=== PATIENT | male | born 1930 | race Caucasian/White ===

== ENCOUNTER 2017-11-29 15:40 | Observation (INO) ==
[2017-11-29] MEDS ORDERED: *HR* Promethazine 25 MG/ML VIAL IVP ONE (16:38)
--- NOTE | 2017-11-29 16:40 | Emergency Department Note ---
Disposition Clinical Impression: Fall Qualifiers: Encounter type: initial encounter Qualified Code(s): W19.XXXA - Unspecified fall, initial encounter Disposition: Still a Patient Referrals: Deangelo Hung Jr, MD [Primary Care Provider] - Forms: ED Satisfaction Letter Fall HPI - General Chief Complaint: ED Fall Stated Complaint: multiple falls Time Seen by Provider: 11/29/17 16:14 Source: patient, family Nursing Notes Reviewed: Yes Vital Signs Reviewed: Yes - History of Present Illness HPI Narrative: Mr. Lowery is an 87 year-old gentleman presenting from PCP's office with his daughter for weakness and falls at home. He lives at home with his , his is not at bedside. Pt fell twice on Tuesday while in bathroom working on a heater when he fell, injuring his forehead and left arm. He doesn't know if he lost consciousness. Daughter states he seemed somewhat confused recently and has difficulty keeping his balance when walking. Pt is on coumadin for anticoagulation for his h/o atrial fibrillation. Per daughter, pt's only heart history is atrial fibrillation, no h/o MS in the past. Pt has had decreased appetite, chills, and cough with white-wise sputum over last couple days; he doesn't report fever but daughter states he was very hot to the touch yesterday. He denies chest pain, palpitations, heart racing, shortness of breath, abdominal pain, dysuria, hematuria, diarrhea. - Related Data Home Medications Medication Instructions Recorded Confirmed Albuterol Sulfate [Proair 90 mcg IH DAILY PRN 05/21/15 11/29/17 Respiclick] Vitamin E (Dl,Tocopheryl Acet) 400 unit PO DAILY 05/21/15 11/29/17 [Vitamin E] Albuterol Neb [Proventil Neb] 2.5 mg IH Q4HR 06/15/17 11/29/17 Diltiazem HCl [Diltiazem ER] 120 mg PO DAILY 06/15/17 11/29/17 Finasteride [Proscar] 5 mg PO DAILY 06/15/17 11/29/17 LORazepam [Ativan] 0.5 mg PO QAM 06/15/17 11/29/17 LORazepam [Ativan] 2 tab PO HS 06/15/17 11/29/17 Amitriptyline [Elavil] 50 mg PO HS 11/29/17 11/29/17 Budesonide/Formoterol 160/4.5 2 puff IH BIDR 11/29/17 11/29/17 [Symbicort 160/4.5] Calcium Carb, Citrate/Vit D3 1 tab PO DAILY 11/29/17 11/29/17 [Calcium + D3 ER Tablet] Mirabegron [Myrbetriq] 50 mg PO DAILY 11/29/17 11/29/17 Tamsulosin HCl [Flomax] 0.8 mg PO DAILY 11/29/17 11/29/17 Warfarin [Coumadin] 5 mg PO DAILY 11/29/17 11/29/17 Previous Rx's Medication Instructions Recorded Aspirin 81 mg PO DAILY 30 Days tablet 05/23/15 Allergies Allergy/AdvReac Type Severity Reaction Status Date / Time No Known Allergies Allergy Verified 11/29/17 15:47 All systems ED: reviewed and negative except as stated. Review of Systems: As Per HPI Constitutional: Reports: as per HPI Cardiovascular: Reports: as per HPI. Denies: chest pain, palpitations, edema Respiratory: Reports: as per HPI, cough Gastrointestinal: Reports: as per HPI. Denies: abdominal pain, diarrhea Neurological: Reports: as per HPI. Denies: numbness, paresthesias Hematological/Lymphatic: Reports: as per HPI, easy bleeding, easy bruising Fall PMH - Past Medical History Medical history: Reports: arthritis, asthma, atrial fibrillation, cancer, COPD Surgical history: Reports: cholecystectomy Psychiatric history: Reports: anxiety - Social History Smoking Status: Former smoker Alcohol use: Reports: none Drug use: Reports: none Physical Exam - General Limitations: physical limitation, other (hard of hearing) General appearance: alert, in no apparent distress - Head Head exam: normocephalic, other (Right-sided forehead abrasion) - Eye Eye exam: Present: normal appearance, PERRL - Neck Neck exam: Present: full ROM. Absent: tenderness - Chest Chest inspection: Present: symmetric chest wall rise - Respiratory Respiratory exam: Present: wheezes (expiratory), other (rhonchi). Absent: respiratory distress, accessory muscle use - Cardiovascular Cardiovascular exam: Present: regular rate, tachycardia, normal heart sounds, + S1, +S2 - Abdominal Exam Abdominal exam: Present: soft. Absent: Non-Tender, distention, guarding, rebound, rigidity - Extremities Exam Extremities exam: Present: normal capillary refill. Absent: pedal edema - Expanded Upper Extremity Exam Forearm/Wrist exam: Present: ecchymosis (Bilateral), erythema (Left), other ( demonstrates good range of motion, strength). Absent: deformity - Back Exam Back exam: Present: normal inspection - Neurological Exam Neurological exam: Present: alert, oriented X3, other (answers questions appropriately, no facial droop, no speech deficit). Absent: motor sensory deficit - Psychiatric Psychiatric exam: Present: normal affect, normal mood Course Vital Signs Temperature 97.9 F 11/29/17 15:43 Pulse Rate 111 11/29/17 15:43 Respiratory Rate 18 11/29/17 15:43 Blood Pressure 127/78 11/29/17 15:43 O2 Sat by Pulse Oximetry 97 11/29/17 15:43 Temperature 97.9 F 11/29/17 16:21 Pulse Rate 92 11/29/17 18:21 Respiratory Rate 10 11/29/17 16:38 Blood Pressure 120/85 11/29/17 18:21 O2 Sat by Pulse Oximetry 96 11/29/17 18:21 Oxygen Delivery Oxygen Delivery Room Air Fall - MDM Narrative Medical decision making narrative: 87 year-old presents for falls at home. Pt has h/o COPD. On presentation, he is afebrile and tachycardic at 111, saturating 97% on room air, and in NAD. EKG shows atrial fibrillation and no evidence for acute ischemia. CT head shows no intracranial hemorrhage and CT cervical spine shows no evidence of fracture, compression, or subluxation. CXR shows opacity at base of left lung, suspicious for PNA. Initial labs show WBC 18.4, INR 2.5, and hyperkalemia 5.5. Lactic acid within normal limits. Preliminary ultrasound report for venous doppler of LUE is negative for DVT/SVT. While in the ED, he has been slightly tachycardic in low 100's, he is hemodynamically stable, oxygen saturation 96% on room air.. DuoNeb treatment, Solu-Medrol, and Levaquin given in ED. Pt to be admitted for PNA treatment and for further evaluation. - Medical Records Medical records reviewed: Yes I reviewed the patient's medical records. - Lab Data Lab results reviewed: Yes I reviewed the patient's lab results. Result diagrams: 11/29/17 16:47 11/29/17 16:47 Lab Results 11/29/17 11/29/17 11/29/17 Range/Units 16:47 16:47 16:47 WBC 18.4 H (4.3-11.1) K/mcL RBC 4.74 (4.19-5.50) M/mcL Hgb 15.0 (12.9-16.9) g/dL Hct 44.2 (37.5-50.1) % MCV 93.2 (83.0-100.0) fL MCH 31.6 (28.0-33.3) pg MCHC 33.9 (31.6-35.5) g/dL RDW 15.2 H (11.5-14.5) % Plt Count 137 L (140-400) K/mcL MPV 10.3 (9.4-12.4) fL Immature Gran % 0.4 (0-4) % Seg Neutrophils % 84.8 % Lymphocytes % 9.4 % Monocytes % 4.8 % Eosinophils % 0.3 % Basophils % 0.3 % Neutrophils # 15.6 H (1.6-8.9) K/mcL Lymphocytes # 1.7 (0.6-4.6) K/mcL Monocytes # 0.9 (0.0-1.3) K/mcL Eosinophils # 0.1 (0.0-0.6) K/mcL Basophils # 0.1 (0.0-0.2) K/mcL PT 27.9 H (9.4-12.1) Seconds INR 2.5 APTT 39.6 H (26.0-36.0) Seconds Sodium 134 L (136-145) mEq/L Potassium 5.5 H (3.5-5.1) mEq/L Chloride 103 (98-107) mEq/L Carbon Dioxide 23 (23-29) mEq/L BUN 26 H (8-23) mg/dL Creatinine 1.15 (0.70-1.30) mg/dL Est GFR ( Amer) > 60 (> 60) Est GFR (Non-Af Amer) > 60 (> 60) BUN/Creatinine Ratio 23 (6-26) Glucose 108 H (70-105) mg/dL Calculated Osmolality 283 (280-300) Lactic Acid (0.5-2.2) mmol/L Calcium 9.7 (8.6-10.3) mg/dL Total Bilirubin 1.7 H (0.3-1.0) mg/dL AST 19 (13-39) Units/L ALT 13 (7-52) Units/L Alkaline Phosphatase 47 (34-104) Units/L Serum Total Protein 7.2 (6.4-8.9) g/dL Albumin 4.0 (3.5-5.7) g/dL Globulin 3.2 (2.4-3.5) g/dL Albumin/Globulin Ratio 1.3 (1.1-2.2) Blood Type Antibody Screen 11/29/17 11/29/17 Range/Units 16:47 16:47 WBC (4.3-11.1) K/mcL RBC (4.19-5.50) M/mcL Hgb (12.9-16.9) g/dL Hct (37.5-50.1) % MCV (83.0-100.0) fL MCH (28.0-33.3) pg MCHC (31.6-35.5) g/dL RDW (11.5-14.5) % Plt Count (140-400) K/mcL MPV (9.4-12.4) fL Immature Gran % (0-4) % Seg Neutrophils % % Lymphocytes % % Monocytes % % Eosinophils % % Basophils % % Neutrophils # (1.6-8.9) K/mcL Lymphocytes # (0.6-4.6) K/mcL Monocytes # (0.0-1.3) K/mcL Eosinophils # (0.0-0.6) K/mcL Basophils # (0.0-0.2) K/mcL PT (9.4-12.1) Seconds INR APTT (26.0-36.0) Seconds Sodium (136-145) mEq/L Potassium (3.5-5.1) mEq/L Chloride (98-107) mEq/L Carbon Dioxide (23-29) mEq/L BUN (8-23) mg/dL Creatinine (0.70-1.30) mg/dL Est GFR ( Amer) (> 60) Est GFR (Non-Af Amer) (> 60) BUN/Creatinine Ratio (6-26) Glucose (70-105) mg/dL Calculated Osmolality (280-300) Lactic Acid 1.4 (0.5-2.2) mmol/L Calcium (8.6-10.3) mg/dL Total Bilirubin (0.3-1.0) mg/dL AST (13-39) Units/L ALT (7-52) Units/L Alkaline Phosphatase (34-104) Units/L Serum Total Protein (6.4-8.9) g/dL Albumin (3.5-5.7) g/dL Globulin (2.4-3.5) g/dL Albumin/Globulin Ratio (1.1-2.2) Blood Type O POSITIVE Antibody Screen NEGATIVE - Radiology Data Radiology results reviewed: Yes I reviewed the patient's radiology results. - EKG Data EKG attestation: Yes I reviewed and interpreted this EKG. Rate: tachycardia Rhythm: A.Fib
--- NOTE | 2017-11-29 16:47 | Emergency Department Note ---
Disposition Clinical Impression: Fall Qualifiers: Encounter type: initial encounter Qualified Code(s): W19.XXXA - Unspecified fall, initial encounter Disposition: Still a Patient Forms: ED Satisfaction Letter General Adult HPI - General Chief complaint: ED Fall Stated complaint: multiple falls Time Seen by Provider: 11/29/17 16:14 Source: patient, family Limitations: physical limitation - History of Present Illness Pain Scale: 8 - Related Data Home Medications Medication Instructions Recorded Confirmed Albuterol Sulfate [Proair 90 mcg IH DAILY PRN 05/21/15 06/15/17 Respiclick] Amitriptyline [Elavil] 50 mg PO HS 05/21/15 06/15/17 Budesonide/Formoterol 160/4.5 2 puff IH BID 05/21/15 06/15/17 [Symbicort] Calcium Carbonate/Vitamin D3 1 tab PO DAILY 05/21/15 06/15/17 [Calcium 500-Vit D3 400 Tablet] Tamsulosin [Flomax] 0.4 mg PO DAILY 05/21/15 06/15/17 Vitamin E (Dl,Tocopheryl Acet) 400 unit PO DAILY 05/21/15 06/15/17 [Vitamin E] Albuterol Neb [Proventil Neb] 2.5 mg IH Q4HR 06/15/17 06/15/17 Diltiazem HCl [Diltiazem ER] 120 mg PO DAILY 06/15/17 06/15/17 Finasteride [Proscar] 5 mg PO DAILY 06/15/17 06/15/17 LORazepam [Ativan] 0.5 mg PO QAM 06/15/17 06/15/17 LORazepam [Ativan] 2 tab PO HS 06/15/17 06/15/17 Previous Rx's Medication Instructions Recorded Aspirin 81 mg PO DAILY 30 Days tablet 05/23/15 Warfarin [Coumadin] 5 mg PO 1800 #7 tablet 05/23/15 HYDROcodone/Acet 5/325 mg [[place] 1 tab PO Q6H PRN #12 tab 06/15/17 5-325 mg] Allergies Allergy/AdvReac Type Severity Reaction Status Date / Time No Known Allergies Allergy Verified 11/29/17 15:47 Past Medical History - Past Medical History Medical history: Reports: arthritis, asthma, atrial fibrillation, cancer, COPD Surgical history: Reports: cholecystectomy Psychiatric history: Reports: anxiety - Social History Smoking Status: Former smoker Smokeless Tobacco Status: No Alcohol use: Reports: none Drug use: Reports: none Physical Exam - General Limitations: physical limitation General appearance: alert, in no apparent distress Course Vital Signs Temperature 97.9 F 11/29/17 15:43 Pulse Rate 111 11/29/17 15:43 Respiratory Rate 18 11/29/17 15:43 Blood Pressure 127/78 11/29/17 15:43 O2 Sat by Pulse Oximetry 97 11/29/17 15:43 Temperature 97.9 F 11/29/17 16:21 Pulse Rate 105 11/29/17 16:38 Respiratory Rate 10 11/29/17 16:38 Blood Pressure 137/88 11/29/17 16:38 O2 Sat by Pulse Oximetry 96 11/29/17 16:38 Oxygen Delivery Oxygen Delivery Room Air Attestation Statement - Attestation Attestation: I examined this patient and my medical decision-making was reviewed with the Resident Physician. I agree with the documented findings, disposition and treatment plan as described except to the extent set forth below. 87 year old male presents to the ED with complaints of 2 falls on Tuesday wihtout syncope and states that he was in the bathroom trying to hooks up the heater and than fell forward and injured his head on the forehead and is currently on coumadin and fell on the left side of his arm. [employer] Super[employer] Maintenance at bedside states that he has fallen again while trying to get into bed as well. NO LOC. Greg denies headache or nekc pain but has extensive bruising to the LUE with good radial pulse and no paresthesias or neuro symptoms. Kristina daughter states that she is concnerd abou the multiple falls and being on coumsin and has a history of atrial fibrillation. Greg denies chest pain, cough, nausea, vomitting, abdominal pain or weakness. We will do a trauma evaluation and syncopae evlauation and a possible infectious source to the falls.
[2017-11-29 17:13] LABS: INR 2.5; Prothrombin Time 27.9 Seconds (9.4-12.1)
[2017-11-29 17:16] LABS: Activated Partial Thrombo Time 39.6 Seconds (26.0-36.0)
[2017-11-29 17:25] LABS: Alanine Aminotransferase 13 Units/L (7-52); Albumin/Globulin Ratio 1.3 (1.1-2.2); Alkaline Phosphatase 47 Units/L (34-104); Aspartate Amino Transferase 19 Units/L (13-39); BUN/Creatinine Ratio 23 (6-26); Bilirubin,Total 1.7 mg/dL (0.3-1.0); Blood Urea Nitrogen 26 mg/dL (8-23); Calcium 9.7 mg/dL (8.6-10.3); Carbon Dioxide 23 mEq/L (23-29); Chloride 103 mEq/L (98-107); Globulin 3.2 g/dL (2.4-3.5); Glucose 108 mg/dL (70-105); Osmolality,Calculated 283 (280-300); Potassium 5.5 mEq/L (3.5-5.1); Sodium 134 mEq/L (136-145); Total Protein 7.2 g/dL (6.4-8.9); eGFR For African Americans > 60 (> 60); eGFR For Non-African Americans > 60 (> 60)
[2017-11-29] MEDS ORDERED: Levofloxacin 750 MG/150 ML 750 MG/150 ML BAG IVPB ONE (17:38)
[2017-11-29] MEDS ORDERED: methylPREDNISolone 125 MG/2 ML VIAL IVP ONE (17:38)
[2017-11-29] MEDS ORDERED: Ipratropium/Albuterol Neb 3 ML IH ONE (17:38)
[2017-11-29 18:03] LABS: Basophils # 0.1 K/mcL (0.0-0.2); Basophils % 0.3 %; Eosinophils # 0.1 K/mcL (0.0-0.6); Eosinophils % 0.3 %; Hematocrit 44.2 % (37.5-50.1); Immature Granulocytes % 0.4 % (0-4); Lymphocytes # 1.7 K/mcL (0.6-4.6); Lymphocytes % 9.4 %; Mean Corpuscular Hemoglobin 31.6 pg (28.0-33.3); Mean Platelet Volume 10.3 fL (9.4-12.4); Monocytes # 0.9 K/mcL (0.0-1.3); Monocytes % 4.8 %; Neutrophils # 15.6 K/mcL (1.6-8.9); Platelet Count 137 K/mcL (140-400); Red Blood Count 4.74 M/mcL (4.19-5.50); Red Cell Distribution Width 15.2 % (11.5-14.5); Segmented Neutrophils % 84.8 %
[2017-11-29 18:04] LABS: Mean Corpuscular HGB Conc 33.9 g/dL (31.6-35.5); Mean Corpuscular Volume 93.2 fL (83.0-100.0)
[2017-11-29 19:42] LABS: Bilirubin,Urine Negative (Negative); Blood,Urine Negative (Negative); Clarity,Urine Cloudy (Clear); Color,Urine Dark Yellow (Yellow); Glucose,Urine (UA) Normal (Normal); Ketones,Urine Trace mg/dL (Negative); Leukocyte Esterase,Urine Small (Negative); Nitrite,Urine Negative (Negative); PH,Urine 5.5 pH Units (5.0-8.0); Protein,Urine Trace mg/dL (Neg-Trace); Specific Gravity,Urine > 1.030 (1.010-1.025); Urobilinogen,Urine Normal (Normal)
[2017-11-29 19:45] LABS: Bacteria,Urine None Seen per hpf (None-Few); Hyaline Casts,Urine Moderate per lpf (None-Few); Squamous Epithelial Cell,Urine Many per lpf (None-Few)
[2017-11-29 20:02] LABS: Waxy Casts,Urine Few per lpf (None Seen)
[2017-11-29] MEDS ORDERED: (Albuterol Sulfate [Proair Respiclick] 90 MCG) IH PRN (20:37)
[2017-11-29] MEDS ORDERED: Naloxone 0.4 MG/ML INJ IVP PRN (20:38)
--- NOTE | 2017-11-29 20:44 | Internal Med History&Physical ---
Date of Encounter: 11/29/17 Time of Encounter: 20:42 Internal Medicine - H&P: HPI Chief complaint: fall at home History of present illness: Mr. Lowery is a 87 year old male who presents with a fall at home, found to have a possible pneumonia. Patient has a history of atrial fibrillation on Coumadin, rate controlled who presents with a fall and back from today while attempting to walk the heater on while bending over. Denies any dizziness or any prodromal symptoms. It appears to be a mechanical fall. He sustained trauma to the right forehead, left arm, right wrist. However further review patient is reported wheezing, productive of yellow sputum, having a fever, feeling cold the last week approximately. He has quit smoking in 1930s. EKG personally reviewed with rate of 100, atrial fibrillation CT/CT head/brain wo con IMPRESSION: 1. No intracranial hemorrhage or extra-axial fluid collection. 2. Moderate degenerative change of the cervical spine without evidence of fracture, compression deformity or subluxation. 3. Chronic microvascular ischemia involving the brain. 4. Old trauma to the left medial orbital wall suspected. XR/XR chest 1V portable IMPRESSION: Mild patchy opacity in left lung base, atelectasis versus pneumonia. CT/CT cervical spine wo con IMPRESSION: 1. No intracranial hemorrhage or extra-axial fluid collection. 2. Moderate degenerative change of the cervical spine without evidence of fracture, compression deformity or subluxation. 3. Chronic microvascular ischemia involving the brain. 4. Old trauma to the left medial orbital wall suspected. Past Med Surg Social Fam HX - Past Medical History Medical history: arthritis, asthma, atrial fibrillation, cancer, COPD Psychiatric history: anxiety - Past Surgical History Surgical History: cholecystectomy - Social History Smoking Status: Former smoker Smokeless Tobacco Status: No Alcohol use: none Drug use: none - Family History Mother Living Status: Hx Family Cardiac Disorders: Yes Hx Family Cancer: Yes Internal Medicine - H&P: Meds Albuterol Sulfate [Proair Respiclick] 90 mcg IH DAILY PRN 05/21/15 [History] Vitamin E (Dl,Tocopheryl Acet) [Vitamin E] 400 unit PO DAILY 05/21/15 [History] Aspirin 81 mg PO DAILY 30 Days tablet 05/23/15 [Rx] Albuterol Neb [Proventil Neb] 2.5 mg IH Q4HR 06/15/17 [History] Diltiazem HCl [Diltiazem ER] 120 mg PO DAILY 06/15/17 [History] Finasteride [Proscar] 5 mg PO DAILY 06/15/17 [History] LORazepam [Ativan] 0.5 mg PO QAM 06/15/17 [History] LORazepam [Ativan] 2 tab PO HS 06/15/17 [History] Amitriptyline [Elavil] 50 mg PO HS 11/29/17 [History] Budesonide/Formoterol 160/4.5 [Symbicort 160/4.5] 2 puff IH BIDR 11/29/17 [ History] Calcium Carb, Citrate/Vit D3 [Calcium + D3 ER Tablet] 1 tab PO DAILY 11/29/17 [ History] Mirabegron [Myrbetriq] 50 mg PO DAILY 11/29/17 [History] Tamsulosin HCl [Flomax] 0.8 mg PO DAILY 11/29/17 [History] Warfarin [Coumadin] 5 mg PO DAILY 11/29/17 [History] 3 Allergy/AdvReac Type Severity Reaction Status Date / Time No Known Allergies Allergy Verified 11/29/17 15:47 All Systems PM: A 10-system review of systems was performed and is negative for pertinent findings except as documented above in the HPI. Review of systems: ROS 14 point review of systems reviewed as best as possible given presentation. Pertinent positive or negative as per HPI or otherwise reviewed as negative - Constitutional Vitals: Temp Pulse Resp BP Pulse Ox 97.9 F 92 20 120/83 96 11/29/17 16:21 11/29/17 18:21 11/29/17 19:54 11/29/17 19:54 11/29/17 18:21 Exam: General - AAO x 3 Psych - Appropriate affect/speech. No agitation Eyes - JERMAINE. Eye lids intact. No scleral icterus Neuro - No gross peripheral or central neuro deficits on inspection Heart - Sinus. RRR. S1 and S2 present. No added HS/murmurs appreciated. No elevated JVD appreciated. Lung - Adequate air entry b/l, bibasal crackles. No wheeze appreciated GI - Soft, non-tender. No hepatosplenomegaly/ascites. BS+ - No CVA/suprapubic tenderness or palpable bladder distension Skin -superficial laceration of the right forehead, erythema due to trauma of the left upper extremity. Internal Med - H&P Results - Labs CBC & Chem 7: 11/29/17 16:47 11/29/17 16:47 Labs: Urine 11/29/17 Range/Units 19:31 Urine Color Dark Yellow (Yellow) Urine Clarity Cloudy A (Clear) Urine pH 5.5 (5.0-8.0) pH Units Ur Specific [place] > 1.030 H (1.010-1.025) Urine Protein Trace (Neg-Trace) mg/dL Urine Glucose (UA) Normal (Normal) mg/dL - Assessment and plan (1) PNA (pneumonia) Current Visit: Yes Status: Acute Assessment and plan: Sent serologies, empiric IV Levaquin,, pulse ox monitoring, aggressive incentive spirometry Qualifiers: Pneumonia type: due to unspecified organism Laterality: left Lung location: lower lobe of lung Qualified Code(s): J18.1 - Lobar pneumonia, unspecified organism (2) Fall Current Visit: Yes Status: Acute Assessment and plan: Appears to be mechanical. Possible in the setting of pneumonia. PTOT evaluation Qualifiers: Encounter type: initial encounter Qualified Code(s): W19.XXXA - Unspecified fall, initial encounter (3) Atrial fibrillation with RVR Current Visit: No Status: Acute Assessment and plan: Continue Cardizem, hold Coumadin on Levaquin, trend INR We would monitor A. fib closely. If uncontrolled may have to start IV vanessa alpa (4) COPD (chronic obstructive pulmonary disease) Current Visit: No Status: Chronic Assessment and plan: Appears compensated, continue nebs Qualifiers: COPD type: unspecified COPD Qualified Code(s): J44.9 - Chronic obstructive pulmonary disease, unspecified - Time Spent With Patient Total time spent is greater than 50% in coordination of care (as documented) at patient's floor/unit and/or counseling patient:
[2017-11-29] MEDS ORDERED: *HR* Metoprolol 5 MG/5 ML VIAL IVP PRN (20:50)
[2017-11-29] MEDS ORDERED: Calcium Chloride 1,000 MG in 0.9 % Sodium Chloride 100 ML IVPB ONE (20:55)
[2017-11-29] MEDS ORDERED: Albuterol 2.5 MG/3 ML NEBULIZER IH SCH (21:00)
[2017-11-29] MEDS: 0.9 % Sodium Chloride 1,000 ML IVC SCH (22:47)
[2017-11-29] MEDS: *HR* LORazepam 1 MG TABLET PO SCH (22:48)
[2017-11-29] MEDS: Albuterol 2.5 MG/3 ML NEBULIZER IH SCH (22:58)
[2017-11-29] MEDS: Budesonide/Formoterol 160/4.5 MDI IH SCH (22:58)
[2017-11-30] MEDS: Albuterol 2.5 MG/3 ML NEBULIZER IH SCH ×4 (04:16→21:46)
[2017-11-30 04:51] LABS: Basophils % 0.1 %
[2017-11-30 04:58] LABS: INR 2.7; Prothrombin Time 29.3 Seconds (9.4-12.1)
[2017-11-30 05:13] LABS: Alanine Aminotransferase 13 Units/L (7-52); Albumin 3.7 g/dL (3.5-5.7); Albumin/Globulin Ratio 1.1 (1.1-2.2); Alkaline Phosphatase 47 Units/L (34-104); Aspartate Amino Transferase 16 Units/L (13-39); BUN/Creatinine Ratio 27 (6-26); Bilirubin,Total 1.2 mg/dL (0.3-1.0); Blood Urea Nitrogen 29 mg/dL (8-23); Calcium 9.6 mg/dL (8.6-10.3); Carbon Dioxide 22 mEq/L (23-29); Chloride 103 mEq/L (98-107); Globulin 3.3 g/dL (2.4-3.5); Glucose 184 mg/dL (70-105); Osmolality,Calculated 295 (280-300); Potassium 3.9 mEq/L (3.5-5.1); Sodium 137 mEq/L (136-145); eGFR For African Americans > 60 (> 60); eGFR For Non-African Americans > 60 (> 60)
[2017-11-30 06:43] LABS: Hematocrit 47.7 % (37.5-50.1); Immature Granulocytes % 0.6 % (0-4); Lymphocytes # 0.6 K/mcL (0.6-4.6); Lymphocytes % 5.4 %; Mean Corpuscular Hemoglobin 31.3 pg (28.0-33.3); Mean Corpuscular Volume 92.1 fL (83.0-100.0); Mean Platelet Volume 10.3 fL (9.4-12.4); Monocytes # 0.2 K/mcL (0.0-1.3); Monocytes % 1.9 %; Platelet Count 133 K/mcL (140-400); Red Blood Count 5.18 M/mcL (4.19-5.50); Red Cell Distribution Width 14.9 % (11.5-14.5)
[2017-11-30 06:48] LABS: Neutrophils # 9.9 K/mcL (1.6-8.9)
[2017-11-30 06:49] LABS: Hemoglobin 16.2 g/dL (12.9-16.9)
[2017-11-30] MEDS: *HR* LORazepam 0.5 MG TABLET PO SCH (08:57)
[2017-11-30] MEDS: Aspirin 81 MG TAB.CHEW PO SCH (08:57)
[2017-11-30] MEDS: Finasteride 5 MG TABLET PO SCH (08:57)
[2017-11-30] MEDS: Diltiazem CD (24hr) 120 MG CAPSULE PO SCH (08:58)
[2017-11-30] MEDS: (Mirabegron [Myrbetriq] 50 MG) PO SCH (10:04)
[2017-11-30] MEDS: Budesonide/Formoterol 160/4.5 MDI IH SCH ×2 (10:20→21:46)
[2017-11-30 11:15] LABS: Creatine Kinase 73 Units/L (30-223)
[2017-11-30] MEDS: 0.9 % Sodium Chloride 1,000 ML IVC SCH (11:48)
--- NOTE | 2017-11-30 13:58 | Internal Med Progress Note ---
Date of Encounter: 11/30/17 Time of Encounter: 14:04 - Assessment and plan (1) Fall Current Visit: Yes Status: Acute Assessment and plan: fell while while bending over on day of arrivals. Head CT non-acute. C-spine non -acute. Bi;ateral carotid dopplers unremarkable. Fall appears to be mechanical. PT/OT consulted Qualifiers: Encounter type: initial encounter Qualified Code(s): W19.XXXA - Unspecified fall, initial encounter (2) PNA (pneumonia) Current Visit: Yes Status: Acute Assessment and plan: CXR concerning for PNA. Urinary antigens negative, afebrile, no elevated to WBC. Continue IV Levaquin. Qualifiers: Pneumonia type: due to unspecified organism Laterality: left Lung location: lower lobe of lung Qualified Code(s): J18.1 - Lobar pneumonia, unspecified organism (3) Elevated lactic acid level Current Visit: Yes Status: Acute Assessment and plan: lactic acid peaked at 3.8. WBC elevated at 18K. could possibly be related to pneumonia however does not appear toxic or acute. Suspect more likely reactive. Continue IV fluids. Monitor repeat lactic acid. (4) Atrial fibrillation with RVR Current Visit: No Status: Acute Assessment and plan: per hx. Rate controlled. Cont home CCB, coumadin (5) COPD (chronic obstructive pulmonary disease) Current Visit: No Status: Chronic Assessment and plan: has known COPD. No evidence of exacerbation. Treating pneumonia as noted above. Continue home inhalers Qualifiers: COPD type: unspecified COPD Qualified Code(s): J44.9 - Chronic obstructive pulmonary disease, unspecified (6) DVT prophylaxis Current Visit: Yes Status: Acute Assessment and plan: SCD - Time Spent With Patient Total time spent is greater than 50% in coordination of care (as documented) at patient's floor/unit and/or counseling patient: - Subjective Interval history: Seen and examined at bedside. Patient is new to me, information obtained from chart review patient report. Patient sitting up on edge of bed, says he feels back to baseline would like to discharge home today. No chest pain or shortness of breath. He does have some tenderness to left arm otherwise has no complaints. - Constitutional Vitals: Temp Pulse Resp BP Pulse Ox 97.7 F 96 14 120/74 95 11/30/17 11:27 11/30/17 11:27 11/30/17 11:27 11/30/17 11:27 11/30/17 11:27 General appearance: Present: A&O X 3, morbidly obese - Head Head exam: Present: atraumatic, normocephalic - Eye Eye exam: Present: PERRL, conjuntiva pink, sclera anicteric Pupils: Present: PERRL - Neck Neck exam general surgery: Present: supple, trachea midline. Absent: lymphadenopathy - Respiratory Respiratory exam: Present: rhonchi (RLL ). Absent: accessory muscle use, rales , wheezes - Cardiovascular Cardiovascular exam: Present: RRR, +S1, +S2. Absent: diastolic murmur, gallop, rubs, systolic murmur - GI/Abdominal GI/Abdominal exam: Present: normal bowel sounds, soft, no peritoneal signs. Absent: distended, tenderness - Extremities Exam Extremities exam: Present: warm, radial pulses palpable and symmetrical. Absent : calf tenderness, cyanotic, pedal edema - Neurological Exam Neurological exam: Present: CN II-XII intact, oriented X3, no focal deficits. Absent: pronater drift, facial droop, speech deficit - Skin Skin exam: Present: dry, intact Internal Medicine: Result - Labs CBC & Chem 7: 11/30/17 04:37 11/30/17 04:37 Labs: Short CBC 11/30/17 Range/Units 04:37 WBC 10.8 (4.3-11.1) K/mcL Hgb 16.2 (12.9-16.9) g/dL Hct 47.7 (37.5-50.1) % Plt Count 133 L (140-400) K/mcL Neutrophils # 9.9 H (1.6-8.9) K/mcL BMP 11/30/17 04:37 Sodium 137 Potassium 3.9 D Chloride 103 Carbon Dioxide 22 L BUN 29 H Creatinine 1.07 Glucose 184 H Calcium 9.6 Liver Function 11/30/17 Range/Units 04:37 Total Bilirubin 1.2 H (0.3-1.0) mg/dL AST 16 (13-39) Units/L ALT 13 (7-52) Units/L Alkaline Phosphatase 47 (34-104) Units/L Albumin 3.7 (3.5-5.7) g/dL - ABG Interpretation ABG results: PT/INR, D-dimer PT 29.3 Seconds (9.4-12.1) H 11/30/17 04:37 Consult Discharge Plan - Plan Referrals: Deangelo Hung Jr, MD [Primary Care Provider] -
--- NOTE | 2017-11-30 14:47 | Electrocardiograph Report ---
[address] [place], [place] [address] Test Date: 2017-11-29 Pat Name: Lawrence Lowery Department: 103 Room: 3B24 Gender: M Indexer: MSC : 1930 Requested By: Juan Carlos Harding Order Number: [id number] Reading MD: Halina Chavez Measurements Intervals [place] Rate: 100 P: LA: 0 QRS: -15 QRSD: 92 T: 67 QT: 328 QTc: 385 Interpretive Statements ATRIAL FIBRILLATION WITH RAPID VENTRICULAR RESPONSE ABNORMAL RHYTHM ECG Electronically Signed On 11-30-2017 14:45:56 EDT by Halina Chavez
[2017-11-30] MEDS ORDERED: *HR* Warfarin 5 MG TABLET PO ONE (18:00)
[2017-11-30] MEDS ORDERED: Levofloxacin 500 MG/100 ML 500 MG/100 ML BAG IVPB SCH (18:00)
[2017-11-30] MEDS ORDERED: Warfarin perPT PO PRN (18:00)
[2017-11-30] MEDS: *HR* LORazepam 1 MG TABLET PO SCH (21:38)
[2017-12-01] MEDS: Albuterol 2.5 MG/3 ML NEBULIZER IH SCH ×4 (04:20→21:31)
[2017-12-01 04:53] LABS: INR 3.2; Prothrombin Time 35.3 Seconds (9.4-12.1)
[2017-12-01 05:08] LABS: Alanine Aminotransferase 13 Units/L (7-52); Albumin 3.3 g/dL (3.5-5.7); Albumin/Globulin Ratio 1.2 (1.1-2.2); Alkaline Phosphatase 46 Units/L (34-104); Aspartate Amino Transferase 17 Units/L (13-39); BUN/Creatinine Ratio 36 (6-26); Bilirubin,Total 0.6 mg/dL (0.3-1.0); Blood Urea Nitrogen 33 mg/dL (8-23); Calcium 8.8 mg/dL (8.6-10.3); Carbon Dioxide 25 mEq/L (23-29); Chloride 108 mEq/L (98-107); Globulin 2.7 g/dL (2.4-3.5); Glucose 108 mg/dL (70-105); Osmolality,Calculated 298 (280-300); Potassium 3.9 mEq/L (3.5-5.1); Sodium 140 mEq/L (136-145); eGFR For African Americans > 60 (> 60); eGFR For Non-African Americans > 60 (> 60)
[2017-12-01 05:37] LABS: Basophils % 0.2 %; Eosinophils # 0.1 K/mcL (0.0-0.6); Eosinophils % 0.3 %; Hematocrit 37.7 % (37.5-50.1); Hemoglobin 13.1 g/dL (12.9-16.9); Lymphocytes # 1.4 K/mcL (0.6-4.6); Lymphocytes % 7.7 %; Mean Corpuscular HGB Conc 34.7 g/dL (31.6-35.5); Mean Corpuscular Hemoglobin 32.7 pg (28.0-33.3); Mean Platelet Volume 9.9 fL (9.4-12.4); Monocytes # 0.8 K/mcL (0.0-1.3); Monocytes % 4.8 %; Platelet Count 171 K/mcL (140-400); Red Blood Count 4.01 M/mcL (4.19-5.50); Red Cell Distribution Width 14.6 % (11.5-14.5)
[2017-12-01 05:39] LABS: Neutrophils # 15.1 K/mcL (1.6-8.9)
[2017-12-01] MEDS: Aspirin 81 MG TAB.CHEW PO SCH (08:21)
[2017-12-01] MEDS: *HR* LORazepam 0.5 MG TABLET PO SCH (08:21)
[2017-12-01] MEDS: (Mirabegron [Myrbetriq] 50 MG) PO SCH (08:21)
[2017-12-01] MEDS: Finasteride 5 MG TABLET PO SCH (08:21)
[2017-12-01] MEDS: Diltiazem CD (24hr) 120 MG CAPSULE PO SCH (08:21)
[2017-12-01] MEDS ORDERED: levoFLOXacin 500 MG TABLET PO SCH (09:00)
--- NOTE | 2017-12-01 10:39 | Internal Med Progress Note ---
Date of Encounter: 12/01/17 Time of Encounter: 10:35 - Assessment and plan (1) Acute metabolic encephalopathy Current Visit: Yes Status: Acute Assessment and plan: with acute confusion overnight on 12/01/17. Suspect there is under lying dementia however baseline alert and oriented. WBC 17K; check blood cx'x UA, CXR. Also check repeat head CT as he did fall and hit head while on Coumadin prior to arrival (2) Fall Current Visit: Yes Status: Acute Assessment and plan: fell while while bending over on day of arrivals. Head CT non-acute. C-spine non -acute. Bilateral carotid dopplers unremarkable. Fall appears to be mechanical. PT/OT recommending HHC at discharge Qualifiers: Encounter type: initial encounter Qualified Code(s): W19.XXXA - Unspecified fall, initial encounter (3) PNA (pneumonia) Current Visit: Yes Status: Acute Assessment and plan: CXR concerning for PNA. Urinary antigens negative, afebrile. Continue IV Levaquin. Qualifiers: Pneumonia type: due to unspecified organism Laterality: left Lung location: lower lobe of lung Qualified Code(s): J18.1 - Lobar pneumonia, unspecified organism (4) Elevated lactic acid level Current Visit: Yes Status: Acute Assessment and plan: lactic acid peaked at 3.8. WBC elevated at 18K. could possibly be related to pneumonia however does not appear toxic or acute. Suspect more likely reactive. Continue IV fluids. Repeat lactic acid normal. (5) Atrial fibrillation with RVR Current Visit: No Status: Acute Assessment and plan: knonw hx a-fib. HRs 111 on arrival. HR now controlled. Cont home CCB, coumadin. INR supra-therapeutic on 12/01 (6) COPD (chronic obstructive pulmonary disease) Current Visit: No Status: Chronic Assessment and plan: has known COPD. No evidence of exacerbation. Treating pneumonia as noted above. Continue home inhalers Qualifiers: COPD type: unspecified COPD Qualified Code(s): J44.9 - Chronic obstructive pulmonary disease, unspecified (7) DVT prophylaxis Current Visit: Yes Status: Acute Assessment and plan: SCD - Time Spent With Patient Total time spent is greater than 50% in coordination of care (as documented) at patient's floor/unit and/or counseling patient: - Subjective Interval history: Seen and examined at bedside. Sitting up on edge of bed. He apparently became confused overnight, pulled out IV and thought the police were in his room. Daughter and at bedside and suspect he may have underlying dementia but baseline alert and oriented. Patient has no complaints his self. Says he wants to go home - Constitutional Vitals: Temp Pulse Resp BP Pulse Ox 97.8 F 85 16 121/57 100 12/01/17 03:53 12/01/17 03:53 12/01/17 04:20 12/01/17 03:53 12/01/17 04:20 General appearance: Present: A&O X 2, morbidly obese - Head Head exam: Present: atraumatic, normocephalic - Eye Eye exam: Present: PERRL, conjuntiva pink, sclera anicteric Pupils: Present: PERRL - Neck Neck exam general surgery: Present: supple, trachea midline. Absent: lymphadenopathy - Respiratory Respiratory exam: Present: CTAB. Absent: accessory muscle use, rales, rhonchi, wheezes - Cardiovascular Cardiovascular exam: Present: RRR, +S1, +S2. Absent: diastolic murmur, gallop, rubs, systolic murmur - GI/Abdominal GI/Abdominal exam: Present: normal bowel sounds, soft, no peritoneal signs. Absent: distended, tenderness - Extremities Exam Extremities exam: Present: warm, radial pulses palpable and symmetrical. Absent : calf tenderness, cyanotic, pedal edema Additional comments: bilateral upper extremities with resolving bruising - Neurological Exam Neurological exam: Present: CN II-XII intact, oriented X3, no focal deficits. Absent: pronater drift, facial droop, speech deficit - Skin Skin exam: Present: dry, intact Internal Medicine: Result - Labs CBC & Chem 7: 12/01/17 04:33 12/01/17 04:33 Labs: Short CBC 12/01/17 Range/Units 04:33 WBC 17.5 H D (4.3-11.1) K/mcL Hgb 13.1 D (12.9-16.9) g/dL Hct 37.7 (37.5-50.1) % Plt Count 171 (140-400) K/mcL Neutrophils # 15.1 H (1.6-8.9) K/mcL BMP 11/30/17 12/01/17 04:37 04:33 Sodium 137 140 Potassium 3.9 D 3.9 Chloride 103 108 H Carbon Dioxide 22 L 25 BUN 29 H 33 H Creatinine 1.07 0.91 Glucose 184 H 108 H Calcium 9.6 8.8 Liver Function 11/30/17 12/01/17 Range/Units 04:37 04:33 Total Bilirubin 1.2 H 0.6 (0.3-1.0) mg/dL AST 16 17 (13-39) Units/L ALT 13 13 (7-52) Units/L Alkaline Phosphatase 47 46 (34-104) Units/L Albumin 3.7 3.3 L (3.5-5.7) g/dL - ABG Interpretation ABG results: PT/INR, D-dimer PT 35.3 Seconds (9.4-12.1) H 12/01/17 04:33 Consult Discharge Plan - Plan Referrals: Deangelo Hung Jr, MD [Primary Care Provider] - 12/08/17 1:00 pm (This appointment will be Анна Menard.)
[2017-12-01] MEDS: Budesonide/Formoterol 160/4.5 MDI IH SCH ×2 (11:14→21:31)
[2017-12-01 13:11] LABS: Bilirubin,Urine Negative (Negative); Blood,Urine Negative (Negative); Clarity,Urine Clear (Clear); Color,Urine Yellow (Yellow); Glucose,Urine (UA) Normal (Normal); Ketones,Urine Negative (Negative); Leukocyte Esterase,Urine Negative (Negative); Nitrite,Urine Negative (Negative); Protein,Urine Negative (Neg-Trace); Specific Gravity,Urine 1.022 (1.010-1.025)
[2017-12-01] MEDS: *HR* LORazepam 1 MG TABLET PO SCH (20:43)
[2017-12-01 21:49] LABS: Magnesium 2.1 mg/dL (1.6-2.6)
[2017-12-02] MEDS: Albuterol 2.5 MG/3 ML NEBULIZER IH SCH ×4 (03:42→22:51)
[2017-12-02 06:40] LABS: INR 2.5; Prothrombin Time 27.7 Seconds (9.4-12.1)
[2017-12-02 06:50] LABS: Alanine Aminotransferase 16 Units/L (7-52); Albumin 3.5 g/dL (3.5-5.7); Albumin/Globulin Ratio 1.5 (1.1-2.2); Alkaline Phosphatase 45 Units/L (34-104); Aspartate Amino Transferase 20 Units/L (13-39); BUN/Creatinine Ratio 30 (6-26); Bilirubin,Total 0.9 mg/dL (0.3-1.0); Blood Urea Nitrogen 29 mg/dL (8-23); Calcium 8.5 mg/dL (8.6-10.3); Carbon Dioxide 23 mEq/L (23-29); Chloride 108 mEq/L (98-107); Globulin 2.4 g/dL (2.4-3.5); Glucose 98 mg/dL (70-105); Osmolality,Calculated 294 (280-300); Sodium 139 mEq/L (136-145); Total Protein 5.9 g/dL (6.4-8.9); eGFR For African Americans > 60 (> 60); eGFR For Non-African Americans > 60 (> 60)
[2017-12-02 08:06] LABS: Basophils % 0.4 %; Eosinophils # 0.2 K/mcL (0.0-0.6); Eosinophils % 1.8 %; Hematocrit 39.2 % (37.5-50.1); Immature Granulocytes % 0.8 % (0-4); Lymphocytes # 1.4 K/mcL (0.6-4.6); Lymphocytes % 12.4 %; Mean Corpuscular HGB Conc 33.2 g/dL (31.6-35.5); Mean Platelet Volume 9.9 fL (9.4-12.4); Monocytes # 0.9 K/mcL (0.0-1.3); Monocytes % 8.5 %; Neutrophils # 8.3 K/mcL (1.6-8.9); Platelet Count 191 K/mcL (140-400); Red Blood Count 4.14 M/mcL (4.19-5.50); Segmented Neutrophils % 76.1 %
[2017-12-02 08:07] LABS: Mean Corpuscular Volume 94.7 fL (83.0-100.0)
[2017-12-02 08:08] LABS: Mean Corpuscular Hemoglobin 31.4 pg (28.0-33.3)
[2017-12-02] MEDS: Diltiazem CD (24hr) 120 MG CAPSULE PO SCH (09:22)
[2017-12-02] MEDS: Finasteride 5 MG TABLET PO SCH (09:22)
[2017-12-02] MEDS: Aspirin 81 MG TAB.CHEW PO SCH (09:22)
[2017-12-02] MEDS: *HR* LORazepam 0.5 MG TABLET PO SCH (09:22)
[2017-12-02] MEDS: (Mirabegron [Myrbetriq] 50 MG) PO SCH (09:23)
[2017-12-02] MEDS ORDERED: cefTRIAXone 1,000 MG in Water for inj. (sterile) 20 ML 10 ML IVP SCH (10:00)
[2017-12-02] MEDS ORDERED: Azithromycin 500 MG in D5% in Water 250 ML IVPB SCH (10:00)
--- NOTE | 2017-12-02 10:45 | Internal Med Progress Note ---
Date of Encounter: 12/02/17 Time of Encounter: 10:51 - Assessment and plan (1) Acute metabolic encephalopathy Current Visit: Yes Status: Acute Assessment and plan: with acute confusion overnight on 12/01/17. On couamdin and had a fall that resulted in hitting head prior to admisison. Repeat head CT [id number]. UA not indicative of UTI. Brain MRI negative for acute infarct. Mentation appears to waxe and wane; suspect under lying dementia now with superimposed delirium. Supportive care for now. Ammonia level, ABG pending (2) Fall Current Visit: Yes Status: Acute Assessment and plan: fell while while bending over on day of arrivals. Head CT non-acute. C-spine non -acute. Bilateral carotid dopplers unremarkable. Fall appears to be mechanical. PT/OT recommending HHC at discharge Qualifiers: Encounter type: initial encounter Qualified Code(s): W19.XXXA - Unspecified fall, initial encounter (3) Left arm cellulitis Current Visit: Yes Status: Acute Assessment and plan: left arm with worsening erythema, warmth and tenderness (secondary to abrasions from fall). Initially treated with Levaquin which also covered possible pneumonia however clinically cellulitis appears to be worsening. On Levaquin for possible PNA, add vanco. Left arm x-ray pending (4) PNA (pneumonia) Current Visit: Yes Status: Acute Assessment and plan: CXR concerning for PNA. Urinary antigens negative, afebrile. Continue IV Levaquin. Qualifiers: Pneumonia type: due to unspecified organism Laterality: left Lung location: lower lobe of lung Qualified Code(s): J18.1 - Lobar pneumonia, unspecified organism (5) Elevated lactic acid level Current Visit: Yes Status: Acute Assessment and plan: lactic acid peaked at 3.8. WBC elevated at 18K. could possibly be related to pneumonia however does not appear toxic or acute. Suspect more likely reactive. Continue IV fluids. Repeat lactic acid normal. (6) Atrial fibrillation with RVR Current Visit: No Status: Acute Assessment and plan: knonw hx a-fib. HRs 111 on arrival. HR now controlled. Cont home CCB, coumadin. (7) COPD (chronic obstructive pulmonary disease) Current Visit: No Status: Chronic Assessment and plan: has known COPD. No evidence of exacerbation. Treating pneumonia as noted above. Continue home inhalers Qualifiers: COPD type: unspecified COPD Qualified Code(s): J44.9 - Chronic obstructive pulmonary disease, unspecified (8) DVT prophylaxis Current Visit: Yes Status: Acute Assessment and plan: SCD - Time Spent With Patient Total time spent is greater than 50% in coordination of care (as documented) at patient's floor/unit and/or counseling patient: - Subjective Interval history: Seen and examined at bedside. Laying in bed, no distress apparent. Patient says he feels fine. at bedside and says he is still confused. - Constitutional Vitals: Temp Pulse Resp BP Pulse Ox 97.9 F 87 15 126/76 96 12/02/17 07:06 12/02/17 07:06 12/02/17 07:06 12/02/17 07:06 12/02/17 07:06 General appearance: Present: A&O X 2, morbidly obese - Head Head exam: Present: atraumatic, normocephalic - Eye Eye exam: Present: PERRL, conjuntiva pink, sclera anicteric Pupils: Present: PERRL - Neck Neck exam general surgery: Present: supple, trachea midline. Absent: lymphadenopathy - Respiratory Respiratory exam: Present: CTAB. Absent: accessory muscle use, rales, rhonchi, wheezes - Cardiovascular Cardiovascular exam: Present: RRR, +S1, +S2. Absent: diastolic murmur, gallop, rubs, systolic murmur - GI/Abdominal GI/Abdominal exam: Present: normal bowel sounds, soft, no peritoneal signs. Absent: distended, tenderness - Extremities Exam Extremities exam: Present: warm, radial pulses palpable and symmetrical. Absent : calf tenderness, cyanotic, pedal edema Additional comments: Left upper extremity with worsening erythema, swelling, tenderness and warmth. - Neurological Exam Neurological exam: Present: CN II-XII intact, oriented X3, no focal deficits. Absent: pronater drift, facial droop, speech deficit - Skin Skin exam: Present: dry, intact Internal Medicine: Result - Labs CBC & Chem 7: 12/02/17 06:09 12/02/17 06:09 Labs: Short CBC 12/02/17 Range/Units 06:09 WBC 10.9 (4.3-11.1) K/mcL Hgb 13.0 (12.9-16.9) g/dL Hct 39.2 (37.5-50.1) % Plt Count 191 (140-400) K/mcL Neutrophils # 8.3 (1.6-8.9) K/mcL BMP 12/01/17 12/02/17 04:33 06:09 Sodium 140 139 Potassium 3.9 4.0 Chloride 108 H 108 H Carbon Dioxide 25 23 BUN 33 H 29 H Creatinine 0.91 0.98 Glucose 108 H 98 Calcium 8.8 8.5 L Liver Function 12/01/17 12/02/17 Range/Units 04:33 06:09 Total Bilirubin 0.6 0.9 (0.3-1.0) mg/dL AST 17 20 (13-39) Units/L ALT 13 16 (7-52) Units/L Alkaline Phosphatase 46 45 (34-104) Units/L Albumin 3.3 L 3.5 (3.5-5.7) g/dL Urine 12/01/17 Range/Units 12:55 Urine Color Yellow (Yellow) Urine Clarity Clear (Clear) Urine pH 6.0 (5.0-8.0) pH Units Ur Specific [place] 1.022 (1.010-1.025) Urine Protein Negative (Neg-Trace) mg/dL Urine Glucose (UA) Normal (Normal) mg/dL - ABG Interpretation ABG results: PT/INR, D-dimer PT 27.7 Seconds (9.4-12.1) H 12/02/17 06:09 - Impressions Impressions Head CT 12/01/17 10:30 IMPRESSION: 1. No acute intracranial abnormality. D/ / Wilian Mack MD / Wilian Mack MD Interpreting Provider: Wilian Mack MD Chest X-Ray 12/01/17 10:33 IMPRESSION: Slightly increased linear opacity in the right lung base, likely atelectasis otherwise no new acute cardiopulmonary findings. D/ / Kristina Cuellar MD / Kristina Cuellar MD Interpreting Provider: Kristina Cuellar MD Brain MRI 12/01/17 15:24 IMPRESSION: No acute infarct. D/ / James Arias MD / James Arias MD Interpreting Provider: James Arias MD Consult Discharge Plan - Plan Referrals: Deangelo Hung Jr, MD [Primary Care Provider] - 12/08/17 1:00 pm (This appointment will be Анна Menard.)
[2017-12-02] MEDS ORDERED: Vancomycin 1,750 MG in 0.9 % Sodium Chloride 250 ML IVPB SCH (11:00)
[2017-12-02] MEDS: Budesonide/Formoterol 160/4.5 MDI IH SCH ×2 (11:14→22:52)
[2017-12-02 11:44] LABS: ABG Base Excess 1 mEq/L (-2 to 3); ABG HCO3 25 mEq/L (21-27); ABG Oxygen Saturation 96 % (95-98); ABG PCO2 38 mmHg (35-45); ABG PH 7.43 pH Units (7.32-7.45); ABG PO2 82 mmHg (85-104); ABG TCO2 27 mEq/L (20-26)
[2017-12-02] MEDS ORDERED: Levofloxacin 750 MG/150 ML 750 MG/150 ML BAG IVPB SCH (12:00)
[2017-12-02] MEDS ORDERED: *HR* Warfarin 4 MG TABLET PO ONE (18:00)
[2017-12-02] MEDS: *HR* LORazepam 1 MG TABLET PO SCH (20:21)
[2017-12-03 03:59] LABS: INR 2.3; Prothrombin Time 25.4 Seconds (9.4-12.1)
[2017-12-03 04:02] LABS: Alanine Aminotransferase 20 Units/L (7-52); Albumin 3.2 g/dL (3.5-5.7); Albumin/Globulin Ratio 1.3 (1.1-2.2); Alkaline Phosphatase 44 Units/L (34-104); Aspartate Amino Transferase 20 Units/L (13-39); BUN/Creatinine Ratio 20 (6-26); Blood Urea Nitrogen 22 mg/dL (8-23); Calcium 8.5 mg/dL (8.6-10.3); Carbon Dioxide 27 mEq/L (23-29); Chloride 108 mEq/L (98-107); Globulin 2.5 g/dL (2.4-3.5); Glucose 101 mg/dL (70-105); Osmolality,Calculated 291 (280-300); Potassium 3.9 mEq/L (3.5-5.1); Sodium 139 mEq/L (136-145); Total Protein 5.7 g/dL (6.4-8.9); eGFR For African Americans > 60 (> 60); eGFR For Non-African Americans > 60 (> 60)
[2017-12-03] MEDS: Albuterol 2.5 MG/3 ML NEBULIZER IH SCH ×2 (05:04→11:21)
[2017-12-03 05:13] LABS: Basophils # 0.1 K/mcL (0.0-0.2); Basophils % 0.7 %; Eosinophils # 0.4 K/mcL (0.0-0.6); Eosinophils % 4.4 %; Hematocrit 35.6 % (37.5-50.1); Hemoglobin 12.3 g/dL (12.9-16.9); Immature Granulocytes % 2.8 % (0-4); Immature Platelets 2.4 % (1.1-6.1); Lymphocytes # 1.8 K/mcL (0.6-4.6); Lymphocytes % 19.3 %; Mean Corpuscular HGB Conc 34.6 g/dL (31.6-35.5); Mean Platelet Volume 9.5 fL (9.4-12.4); Monocytes # 0.8 K/mcL (0.0-1.3); Monocytes % 8.7 %; Neutrophils # 5.9 K/mcL (1.6-8.9); Platelet Count 196 K/mcL (140-400); Red Blood Count 3.73 M/mcL (4.19-5.50); Red Cell Distribution Width 14.8 % (11.5-14.5); Segmented Neutrophils % 64.1 %
[2017-12-03 05:16] LABS: Mean Corpuscular Volume 95.4 fL (83.0-100.0)
[2017-12-03 08:32] VITALS: BP 143/92
[2017-12-03] MEDS: Aspirin 81 MG TAB.CHEW PO SCH (09:40)
[2017-12-03] MEDS: Diltiazem CD (24hr) 120 MG CAPSULE PO SCH (09:40)
[2017-12-03] MEDS: Finasteride 5 MG TABLET PO SCH (09:40)
[2017-12-03] MEDS: *HR* LORazepam 0.5 MG TABLET PO SCH (09:40)
[2017-12-03] MEDS: (Mirabegron [Myrbetriq] 50 MG) PO SCH (09:41)
--- NOTE | 2017-12-03 10:52 | Discharge Summary ---
- NOTES TO OUTPATIENT PROVIDER Notes to Outpatient Provider: Will need follow-up with CBC and INR. Recommend reviewing risks versus benefits of anticoagulation as patient is high fall risk with advanced age and on Coumadin. Orders not resulted at time of discharge: Pending orders 11/29/17 20:40 Mycoplasma pneumoniae IgG IgM Routine 12/01/17 11:13 Culture,Blood [BC] Stat 12/03/17 09:10 Occult Blood,Stool [BF] Stat 12/04/17 04:00 BMP [Basic Metabolic Panel] AM 0400 Complete Blood Count [HEME] AM 0400 Complete Blood Count w/o Diff [HEME] AM 0400 Comprehensive Metabolic Panel AM 0400 Prothrombin Time INR [COAG] AM 0400 12/05/17 04:00 BMP [Basic Metabolic Panel] AM 0400 Complete Blood Count w/o Diff [HEME] AM 0400 Date of Encounter: 12/03/17 Time of Encounter: 10:53 - Discharge Diagnosis (1) Acute metabolic encephalopathy Priority: Primary Status: Acute Assessment and Plan: with acute confusion overnight on 12/01/17. [facility] that resulted in hitting head prior to admisison. Repeat head CT non-acute. UA not indicative of UTI. Brain MRI negative for acute infarct. Mentation appears to waxe and wane; suspect under lying dementia now with superimposed delirium. Mentation improved with supportive care. Mentation back to baseline at time of discharge. (2) Fall Priority: Primary Status: Acute Assessment and Plan: fell while while bending over on day of arrivals. Head CT non-acute. C-spine non -acute. Bilateral carotid dopplers unremarkable. Fall appears to be mechanical. PT/OT recommending HHC at discharge Qualifiers: Encounter type: initial encounter Qualified Code(s): W19.XXXA - Unspecified fall, initial encounter (3) Left arm cellulitis Priority: Primary Status: Acute Assessment and Plan: left arm with worsening erythema, warmth and tenderness (secondary to abrasions from fall). Initially treated with Levaquin which also covered possible pneumonia however clinically cellulitis appeared to be worsening. Improved with IV vanco. Discussed with pharmacy and will discharge home on Keflex as that has a safer side effect profile regarding effects of Coumadin than other possible ATB. (4) PNA (pneumonia) Priority: Primary Status: Suspected Assessment and Plan: possible. CXR with RLL opacity, initially concerning for pneumonia. Repeat CXR with RLL opacity likely atelectasis. Urinary antigens negative, afebrile. LCTA, no cough or SOB. Received 3 doses IV ATB. Hold on further ATB for pneumonia as quickly does not appear to be pneumonia and he is a high risk of supratherapeutic INR since he is on Coumadin. Recommend follow-up with PCP within one week. Qualifiers: Pneumonia type: due to unspecified organism Laterality: left Lung location: lower lobe of lung Qualified Code(s): J18.1 - Lobar pneumonia, unspecified organism (5) Elevated lactic acid level Priority: Primary Status: Resolved Assessment and Plan: lactic acid peaked at 3.8. WBC elevated at 18K. could possibly be related to pneumonia however did not appear toxic or acute. Suspect more likely reactive or secondary to fall. Lactic acid normalized with IV fluids. (6) Atrial fibrillation with RVR Priority: Primary Status: Acute Assessment and Plan: known hx a-fib. HRs 111 on arrival. HR now controlled. Discussed risk of CVA without anticoagulation and risk of bleeding with anticoagulation with daughter and . Recommend review with PCP. Cont home CCB, coumadin. (7) COPD (chronic obstructive pulmonary disease) Priority: Secondary Status: Chronic Assessment and Plan: has known COPD. No evidence of exacerbation. Continue home inhalers Qualifiers: COPD type: unspecified COPD Qualified Code(s): J44.9 - Chronic obstructive pulmonary disease, unspecified Hospital course: Please see assessment and plan for Hospital course Discharge discussed with: patient (Seen and examined at bedside. Says he feels better would like to go home today. and daughter at bedside who says patient slept well last night and mentation back to baseline. No chest pain or shortness of breath. Discussed the increased risk of CVA without use of anticoagulation and increase risk of bleeding with daughter and . Both verbalize understanding. Continue Coumadin for now and advised family to follow -up with PCP) - Time Spent with Patient Total time spent providing and/or coordinating discharge services: - Discharge Medications Prescriptions: Cephalexin [Keflex] 500 mg PO QID #20 capsule Warfarin [Coumadin] 4 mg PO 1800 #2 tablet Home Medications: Albuterol Sulfate [Proair Respiclick] 90 mcg IH DAILY PRN 05/21/15 [History] Vitamin E (Dl,Tocopheryl Acet) [Vitamin E] 400 unit PO DAILY 05/21/15 [History] Aspirin 81 mg PO DAILY 30 Days tablet 05/23/15 [Rx] Albuterol Neb [Proventil Neb] 2.5 mg IH Q4HR 06/15/17 [History] Diltiazem HCl [Diltiazem ER] 120 mg PO DAILY 06/15/17 [History] Finasteride [Proscar] 5 mg PO DAILY 06/15/17 [History] LORazepam [Ativan] 0.5 mg PO QAM 06/15/17 [History] LORazepam [Ativan] 2 tab PO HS 06/15/17 [History] Amitriptyline [Elavil] 50 mg PO HS 11/29/17 [History] Budesonide/Formoterol 160/4.5 [Symbicort 160/4.5] 2 puff IH BIDR 11/29/17 [ History] Calcium Carb, Citrate/Vit D3 [Calcium + D3 ER Tablet] 1 tab PO DAILY 11/29/17 [ History] Mirabegron [Myrbetriq] 50 mg PO DAILY 11/29/17 [History] Tamsulosin HCl [Flomax] 0.8 mg PO DAILY 11/29/17 [History] Cephalexin [Keflex] 500 mg PO QID #20 capsule 12/03/17 [Rx] Warfarin [Coumadin] 4 mg PO 1800 #2 tablet 12/03/17 [Rx] Allergies/Adverse Reactions: 3 Allergy/AdvReac Type Severity Reaction Status Date / Time No Known Allergies Allergy Verified 11/29/17 15:47 Date of admission: 11/29/17 19:28 Primary care physician: Deangelo Hung Jr, MD Consults: 11/29/17 20:47 Consult to Occupational Therapy [CONS] Routine Comment: Evaluate, develop and implement POC Reason for Consult: ambulate and assess Does patient have active BEDREST order?: No Is patient medically & hemodynamically stable?: Yes Patient assessed for mobility or mobilized this visit?: Yes Consult to Physical Therapy [CONS] Routine Comment: Evaluate, develop and implement POC Reason for Consult: ambulate assess for placement need Does patient have active BEDREST order?: Yes Is patient medically & hemodynamically stable?: Yes Patient assessed for mobility or mobilized this visit?: Yes 12/02/17 09:27 Consult to PICC team [Consult to Invasive Line Access Team] [CONS] Routine Reason for Consult: Limited access. Pt needing IV ATB. Line Type: EPIV Time Notified: 09:28 Call Completed: Yes Discharging clinician: Em Daly Anticipated date of discharge: 12/03/17 - Constitutional Vitals: Temp Pulse Resp BP Pulse Ox 97.8 F 84 16 143/92 92 12/03/17 07:00 12/03/17 07:00 12/03/17 07:00 12/03/17 07:00 12/03/17 07:00 General appearance: Present: A&O X 2, A&O X 3, morbidly obese - Head Head exam: Present: atraumatic, normocephalic - Eye Eye exam: Present: PERRL, conjuntiva pink, sclera anicteric Pupils: Present: PERRL - Neck Neck exam general surgery: Present: supple, trachea midline. Absent: lymphadenopathy - Respiratory Respiratory exam: Present: CTAB. Absent: accessory muscle use, rales, rhonchi, wheezes - Cardiovascular Cardiovascular exam: Present: RRR, +S1, +S2. Absent: diastolic murmur, gallop, rubs, systolic murmur - GI/Abdominal GI/Abdominal exam: Present: normal bowel sounds, soft, no peritoneal signs. Absent: distended, tenderness - Extremities Exam Extremities exam: Present: warm, radial pulses palpable and symmetrical. Absent : calf tenderness, cyanotic, pedal edema Additional comments: Bilateral upper extremities with resolving ecchymosis. Left arm cellulitis significantly improved; mild erythema, no warmth or tenderness. - Neurological Exam Neurological exam: Present: CN II-XII intact, oriented X3 (LOCX4 but forgetful ) , no focal deficits. Absent: pronater drift, facial droop, speech deficit - Skin Skin exam: Present: dry, intact - Patient Status Disposition: Home Health Service Condition: Good Functional capacity at discharge: independent ambulation Overall status at discharge: patient is back to baseline - Discharge Instructions Instructions: Fall Prevention for Older Adults (GEN), Cellulitis (DC), Cephalexin (By mouth), Warfarin (By mouth), Dementia (GEN) Follow Up With: Deangelo Hung Jr, MD [Primary Care Provider] - 12/08/17 1:00 pm (This appointment will be Анна Menard.) - Diet and Activity Activity: as per physical therapy, increase activity as tolerated Diet: advance to your usual diet
--- NOTE | 2017-12-03 11:15 | Physician Discharge Referral ---
Home Health/Hosp Referral Info Transfer to: Home Health Attending Provider: Em Daly Provider in Charge Post Discharge: PCP - Diagnosis (1) Acute metabolic encephalopathy Status: Acute (2) Fall Status: Acute (3) Left arm cellulitis Status: Acute (4) PNA (pneumonia) Status: Suspected (5) Elevated lactic acid level Status: Resolved (6) Atrial fibrillation with RVR Status: Acute (7) COPD (chronic obstructive pulmonary disease) Status: Chronic - Respiratory Orders None Smoking Cessation: Smoking cessation has been advised. For more information, call the [employer] Tobacco Quit Line at 8-464-BFFK-NOW. - Diet/Nutrition Diet/Nutrition Orders: Regular - Activity Activity Orders: Ambulate, Walker - Services Needed Following services are medically necessary services: Nursing, Home Health Aide, Physical Therapy, Occupational Therapy Other Treatments: Patient will need a CBC and PT/INR drawn on Tuesday12/05/2017. Results will need to be faxed to his primary care physician Dr. Hung at [phone]. Please do not fax or [facility]. Results need to go to patient's primary care physician. - Transfer Medications Prescriptions: Cephalexin [Keflex] 500 mg PO QID #20 capsule Warfarin [Coumadin] 4 mg PO 1800 #2 tablet Home Medications: Albuterol Sulfate [Proair Respiclick] 90 mcg IH DAILY PRN 05/21/15 [History] Vitamin E (Dl,Tocopheryl Acet) [Vitamin E] 400 unit PO DAILY 05/21/15 [History] Aspirin 81 mg PO DAILY 30 Days tablet 05/23/15 [Rx] Albuterol Neb [Proventil Neb] 2.5 mg IH Q4HR 06/15/17 [History] Diltiazem HCl [Diltiazem ER] 120 mg PO DAILY 06/15/17 [History] Finasteride [Proscar] 5 mg PO DAILY 06/15/17 [History] LORazepam [Ativan] 0.5 mg PO QAM 06/15/17 [History] LORazepam [Ativan] 2 tab PO HS 06/15/17 [History] Amitriptyline [Elavil] 50 mg PO HS 11/29/17 [History] Budesonide/Formoterol 160/4.5 [Symbicort 160/4.5] 2 puff IH BIDR 11/29/17 [ History] Calcium Carb, Citrate/Vit D3 [Calcium + D3 ER Tablet] 1 tab PO DAILY 11/29/17 [ History] Mirabegron [Myrbetriq] 50 mg PO DAILY 11/29/17 [History] Tamsulosin HCl [Flomax] 0.8 mg PO DAILY 11/29/17 [History] Cephalexin [Keflex] 500 mg PO QID #20 capsule 12/03/17 [Rx] Warfarin [Coumadin] 4 mg PO 1800 #2 tablet 12/03/17 [Rx] Allergies/Adverse Reactions: 3 Allergy/AdvReac Type Severity Reaction Status Date / Time No Known Allergies Allergy Verified 11/29/17 15:47 Certification: Further, I certify that my clinical findings support that this patient is homebound (i.e. absences from home require considerable and taxing effort and are for medical reasons or [employer]az[employer] services or infrequently or short duration when for other reasons) because: Homebound Reason: Leaving home requires considerable and taxing effort due to condition Attestation: My signature below is to certify that this patient is under my care and that I, or nurse practitioner, or a physician's photographer assistant working with me, has a face-to -face encounter with this patient.
[2017-12-03] MEDS: Budesonide/Formoterol 160/4.5 MDI IH SCH (11:21)
[2017-12-03] MEDS ORDERED: Aminoglycoside Consult 1 EACH MC ONE (12:45)
[2017-12-05 07:27] LABS: Mycoplasma pneumoniae IgG 0.15 U/L (<=0.09)
== END 2017-12-03 12:46 | disposition home health service (06) ==
LOC: 3BNU 15:40 → EMEROO 15:40 → 3BNU 19:58
PROVIDERS: ADMIT Internal Medicine Hematology & Oncology; ATTEND Internal Medicine Hematology & Oncology